=== PATIENT | female | born 1940 ===

== ENCOUNTER 2016-06-06 13:21 | Emergency (ER) | payer MEDICARE, BC ==
[2016-06-06 15:31] LABS: Urine Bilirubin Negative (Negative); Urine Glucose Negative (Negative); Urine Nitrite Negative (Negative)
[2016-06-06 16:57] VITALS: BP 141/80
--- NOTE | 2016-06-06 17:02 | ED ---
Christ Raza Billy, scribed for Carlito Navarro MD on 06/06/16 at 1343 . GI/ HPI - HPI Summary HPI Summary: Patient is a 75 year-old female coming to [facility] presenting with urinary retention since yesterday. She states that yesterday morning, she had urinated as normal, but she has had urgency/frequency since then with "only dribbles." Denies any burning pain. Patient also reports right flank pain and bilateral ankle edema. Denies any fevers, chills, N/V/D. Patient has anal rectal cancer which has metastasized to the liver. Patient no longer is receiving chemotherapy , but has started a new medication, and states that her current complaint may be related to the medication side effects. - History of Current Complaint Chief Complaint: EDUrogenitalProblems Time Seen by Provider: 06/06/16 13:40 Stated Complaint: UNABLE TO URINATE Hx Obtained From: Patient Onset/Duration: Started Hours Ago, Still Present Timing: Constant Severity: Moderate Current Severity: Moderate Pain Intensity: 9 Location of Pain: Flank Associated Signs and Symptoms: Positive: Flank Pain, Other: - urinary retention. Negative: Nausea, Vomiting, Diarrhea, Fever, Chills Aggravating Factor(s): Nothing Alleviating Factor(s): Nothing - Allergy/Home Medications Allergies/Adverse Reactions: Allergies Allergy/AdvReac Type Severity Reaction Status Date / Time Clarithromycin [From Biaxin] Allergy Unknown Verified 06/06/16 13:27 Reaction Details Erythromycin Allergy Unknown Verified 06/06/16 13:27 Reaction Details PMH/Surg Hx/FS Hx/Imm Hx Endocrine/Hematology History: Reports: Hx Diabetes Cardiovascular History: Reports: Hx Hypertension - Surgical History Surgery Procedure, Year, and Place: hysterectomy, cholecystectomy, appendectomy , partial pancreatectomy Infectious Disease History: No Infectious Disease History: Denies: Traveled Outside the [place] in Last 30 Days - Family History Known Family History: Positive: Cardiac Disease, Diabetes - Social History Occupation: Retired Alcohol Use: None Hx Substance Use: No Substance Use Type: Reports: None Hx Tobacco Use: Yes Smoking Status (MU): Former Smoker Review of Systems Negative: Fever, Chills Negative: Vomiting, Diarrhea, Nausea Positive: frequency, flank pain, urgency. Negative: burning Positive: Edema All Other Systems Reviewed And Are Negative: Yes Physical Exam - Summary Physical Exam Summary: VITAL SIGNS: Reviewed. GENERAL: Patient is a thin female who is lying comfortable in the stretcher. Patient is not in any acute respiratory distress. HEAD AND FACE: Normocephalic and atraumatic. EYES: PERRLA, EOMI x 2, No injected conjunctiva. EARS: Hearing grossly intact. Ear canals and tympanic membranes are WNL. MOUTH: Oropharynx within normal limits. NECK: Supple, trachea is midline, no adenopathy, no JVD. CHEST: Symmetric, no tenderness at palpation LUNGS: Clear to auscultation bilaterally. No wheezing or crackles. CVS: RRR,, S1 and S2 present, no murmurs or gallops appreciated. ABDOMEN: Soft, Positive lower abdominal tenderness, positive lower abdominal distention. Positive bowel sounds. No rebound no guarding, and no masses palpated. No abdominal bruit or pulsations. EXTREMITIES: FROM in all major joints, no edema, no cyanosis or clubbing. NEURO: Alert and oriented x 3. No acute neurological deficits. Speech is normal. SKIN: Dry and warm Triage Information Reviewed: Yes Vital Signs On Initial Exam: Initial Vitals Temp Pulse Resp BP Pulse Ox 99.2 F 92 18 131/67 100 06/06/16 13:26 06/06/16 13:26 06/06/16 13:26 06/06/16 13:26 06/06/16 13:26 Vital Signs Reviewed: Yes Diagnostics - Vital Signs Vital Signs Temp Pulse Resp BP Pulse Ox 06/06/16 13:26 99.2 F 92 18 131/67 100 - Laboratory Lab Statement: Any lab studies that have been ordered have been reviewed, and results considered in the medical decision making process. Re-Evaluation - Re-Evaluation First Eval Re-Evaluation Time: 14:35 Change: Improved Comment: Symptoms improved with catheter. Approximately 300 cc voided. GIGU Course/Dx - Course Assessment/Plan: Patient is a 75 year-old female coming to [facility] presenting with urinary retention since yesterday. She states that yesterday morning, she had urinated as normal, but she has had urgency/frequency since then with "only dribbles." Denies any burning pain. Patient also reports right flank pain and bilateral ankle edema. Denies any fevers, chills, N/V/D. Patient has anal rectal cancer which has metastasized to the liver. Patient no longer is receiving chemotherapy, but has started a new medication, and states that her current complaint may be related to the medication side effects. UA shows no UTI. In the ED course, patient was placed a urinary Sinclair catheter and displaced approximately 400 cc of urine. Patient and family members declined any further workup since the patients healthcare is being done at [place]. The patient will follow up with her oncologist and PCP on Wednesday06/08/16 as well as urologist. She will be discharged home with urinary Sinclair catheter and leg bag. Pt was instructed to return with nay other issues. Patient is A&Ox3, hemodynamically stable. I discussed all the findings and test results with the patient. Patient was instructed to return to the emergency room immediately if any of the symptoms return or worsens. Plan of care was discussed with the patient and understands and agrees. All questions were answered at patient satisfaction. There were no further complaints or concerns. Lung exam before discharge: CTA B/L. Good air exchange. No wheezing or crackles heard. CVS: S1 and S2 present. No murmurs appreciated. Patient is alert and oriented x 3. Patient is hemodynamically stable. Patient will be discharged home with follow up special diet cook in the next 2-3 days - Diagnoses Differential Diagnoses - Female: Constipation, Urinary Tract Infection - Urinary retention Provider Diagnoses: Urinary retention Discharge - Discharge Plan Condition: Stable Disposition: HOME Patient Education Materials: Acute Urinary Retention in Women (ED) Referrals: [facility] [place] [facility]IAN REFERRAL [Outside] The documentation as recorded by the Christ mosley Billy accurately reflects the service I personally performed and the decisions made by me, Carlito Navarro MD.
== END 2016-06-06 18:28 | disposition home or self-care (01) ==
LOC: ED 13:21
DX: R33.9 Retention of urine, unspecified (principal); Z87.891 Personal history of nicotine dependence; E11.9 Type 2 diabetes mellitus without complications; I10 Essential (primary) hypertension; C20 Malignant neoplasm of rectum; C78.7 Secondary malignant neoplasm of liver and intrahepatic bile duct
CPT/HCPCS: 81003; 99283